=== PATIENT | female | born 1990 | race Caucasian/White ===

== ENCOUNTER 2017-01-02 09:12 | Inpatient (IN) | payer OTHER ==
[2017-01-02] MEDS ORDERED: FENTANYL 100 MCG/2 ML VIAL IV PRN ×3 (09:21→13:40)
[2017-01-02] MEDS ORDERED: LIDOCAINE HCL/PF 1% 30 ML VIAL SUBCUT PRN ×2 (09:21→13:40)
[2017-01-02] MEDS ORDERED: ONDANSETRON HCL 4 MG/2 ML VIAL IV PRN ×4 (09:21→15:36)
[2017-01-02] MEDS ORDERED: FENTANYL 100 MCG/2 ML VIAL IV ONE ×2 (09:21→13:40)
[2017-01-02] MEDS ORDERED: MISOPROSTOL 200 MCG TABLET PO PRN ×5 (09:21→15:36)
[2017-01-02] MEDS ORDERED: OXYTOCIN/NORMAL SALINE 30 UNIT/500 ML BAG IV SCH ×3 (09:21→15:36)
[2017-01-02] MEDS ORDERED: LACTATED RINGERS 1,000 ML IV SCH ×3 (09:21→14:00)
[2017-01-02] MEDS ORDERED: HOME MEDICATION LIST NEEDED 1 EA EACH MC ONE ×3 (09:21→15:36)
[2017-01-02 10:32] LABS: BASOPHILS 0.2 % (0.0-2.0); EOSINOPHILS 0.6 % (0.0-6.0); EOSINOPHILS# 0.1 X 10^3uL (0.0-0.4); HEMATOCRIT 37.6 % (36.0-48.0); HEMOGLOBIN 13.1 g/dL (12.0-16.0); LYMPHOCYTES 19.5 % (20.0-40.0); LYMPHOCYTES# 1.9 X 10^3uL (0.8-3.8); MEAN CELL VOLUME 92.8 fL (80.0-100.0); MEAN CORPUS. HGB CONCENTRATION 34.9 g/dL (32.0-36.0); MEAN CORPUSCULAR HEMOGLOBIN 32.4 pg (29.0-35.0); MONOCYTES 2.8 % (2.0-10.0); MONOCYTES# 0.3 X 10^3uL (0.2-1.0); NEUTROPHILS 76.9 % (54.0-75.0); NEUTROPHILS# 7.5 X 10^3uL (2.6-6.7); RED BLOOD COUNT 4.05 X 10^6uL (4.20-6.10); RED CELL DISTRIBUTION WIDTH 11.4 % (11.5-14.5); WHITE BLOOD COUNT 9.8 X 10^3uL (3.9-10.7)
[2017-01-02] MEDS ORDERED: TERBUTALINE SULFATE 1 MG/ML VIAL ONE (12:14)
[2017-01-02] MEDS ORDERED: ceFAZolin/DEXTROSE,ISO 2 GM/50 ML PIGGYBACK IV ONE ×2 (12:23→13:40)
--- NOTE | 2017-01-02 12:34 | PROGRESS NOTE:Antepartum ---
Assessment and Plan - Date of Encounter Date of Encounter: 01/02/17 (1) Transverse lie, antepartum Problem details: Back down transverse lie, SROM of clear fluid Status: Acute Assessment and plan: Discussed indication for including potential need to extend the uterine incision. Procedure risks and complications discussed, questions answered. No guarantees made. Consent obtained. Current Visit: Yes - Time Spent With Patient Total time spent with greater than 50% in coordination of care (as documented) at patient's floor/unit and/or counseling patient: HARD METALS HAND ENGRAVER: Antepartum PN Subj - Subjective Interval history: Presented to [facility] this morning after SROM of clear fluid at home. No contractions. complicated by hypothyroidism controlled on medication. Evaluated by RN /-2 and vertex palpated easily, grossly ruptured. Had Category I tracing and was allowed to ambulate. Recently complained that something about the baby's position seemed unusual and contractions felt very odd. I examined her cervix but was unable to palpate the head and suspected a shoulder presentation. Bedside ultrasound confirmed back down transverse lie with head maternal right. Amniotic fluid decreased but not absent. Discussed with patient and spouse a trial of version prior to and they concurred. Given 0.25mg Terbutaline and attempted ECV but unable to move fetus. Discussed and recommend section, they understand and agree. HARD METALS HAND ENGRAVER: Antepartum PN Obj Exam - Latest Vital Signs and I&O Latest Vital Signs/I&O: Vital Signs Temp 36.3 C L 01/02/17 11:24 Pulse 105 H 01/02/17 11:24 Resp 20 01/02/17 11:24 BP 118/78 01/02/17 11:24 Pulse Ox 94 01/02/17 11:24 Intake & Output 01/01/17 01/02/17 01/02/17 17:59 05:59 17:59 Weight 87.09 kg Other: Stool Characteristics Soft Voiding Method Toilet - Exam Heart Monitor: category I Lungs: Bilateral: normal Heart Rhythm: Present: regular Extremities: Absent: tenderness Abdomen: Present: soft Cervical Dilatation Degree: 4 Cervical Effacement Percentage: 50 Station: -4 Additional Comments: Shoulder presentation, clear amniotic fluid noted - Lab Labs: Laboratory Last Values WBC 9.8 X 10^3uL (3.9-10.7) 01/02/17 09:55 RBC 4.05 X 10^6uL (4.20-6.10) L 01/02/17 09:55 Hgb 13.1 g/dL (12.0-16.0) 01/02/17 09:55 Hct 37.6 % (36.0-48.0) 01/02/17 09:55 MCV 92.8 fL (80.0-100.0) 01/02/17 09:55 MCH 32.4 pg (29.0-35.0) 01/02/17 09:55 MCHC 34.9 g/dL (32.0-36.0) 01/02/17 09:55 RDW 11.4 % (11.5-14.5) L 01/02/17 09:55 Plt Count 201 X 10^3uL (130-440) 01/02/17 09:55 MPV 8.0 fL (7.4-10.4) 01/02/17 09:55 Neutrophils % 76.9 % (54.0-75.0) H 01/02/17 09:55 Lymphocytes % 19.5 % (20.0-40.0) L 01/02/17 09:55 Eosinophils % 0.6 % (0.0-6.0) 01/02/17 09:55 Basophils % 0.2 % (0.0-2.0) 01/02/17 09:55 Neutrophils # 7.5 X 10^3uL (2.6-6.7) H 01/02/17 09:55 Lymphocytes # 1.9 X 10^3uL (0.8-3.8) 01/02/17 09:55 Monocytes 2.8 % (2.0-10.0) 01/02/17 09:55 Monocytes # 0.3 X 10^3uL (0.2-1.0) 01/02/17 09:55 Eosinophils # 0.1 X 10^3uL (0.0-0.4) 01/02/17 09:55 Basophils # 0.0 X 10^3uL (0.0-0.1) 01/02/17 09:55 Antibody Screen Negative 01/02/17 09:55 (1) Transverse lie, antepartum Qualifiers: Fetus number: single or unspecified fetus Qualified Code(s): O32.2XX0 - Maternal care for transverse and oblique lie, not applicable or unspecified
[2017-01-02] MEDS ORDERED: TERBUTALINE SULFATE 1 MG/ML VIAL IV ONE ×2 (12:37→13:40)
[2017-01-02] MEDS ORDERED: LIDOCAINE HCL 1% 20 ML VIAL ONE (13:18)
[2017-01-02] MEDS ORDERED: HYDROmorphone HCL 1 MG/ML SYR IV PRN (13:40)
[2017-01-02] MEDS ORDERED: MORPHINE SULFATE 10 MG/ML SYR IV PRN (13:40)
[2017-01-02] MEDS ORDERED: DIPHENHYDRAMINE 25 MG CAPSULE PO PRN ×2 (13:40→15:36)
[2017-01-02] MEDS ORDERED: NALBUPHINE HCL 10 MG/ML AMP IV PRN ×2 (13:40→15:36)
[2017-01-02] MEDS ORDERED: NALOXONE HCL 0.4 MG/ML VIAL IV PRN ×6 (13:40→15:36)
[2017-01-02] MEDS ORDERED: DIPHENHYDRAMINE 50 MG/ML VIAL IV PRN ×2 (13:40→15:36)
[2017-01-02] MEDS ORDERED: FAMOTIDINE IN SALINE, ISO-OSM 20 MG/50 ML PIGGYBACK IV SCH (13:45)
--- NOTE | 2017-01-02 14:09 | OPERATIVE NOTE: C-Section ---
- Operative Report Date of procedure: 01/02/17 Pre-Op Diagnosis: Left shoulder presentation, back down transverse lie Post-op diagnosis: same Procedure: Primary LTC/S with "J" extension Anesthesia Type: Spinal Estimated Blood Loss: 800 Pathology: sent Sponge and instrument counts: correct Estimated Gestational Age (weeks): 37 (03/22) Delivery Presentation: transverse lie Heart Monitor: category I Amniotic Fluid: clear Cord Vessel Description: 3 Vessels Nuchal Cord # of Loops: 1 Cord clamped: Yes Cord blood obtained: Yes at 1 minute: 7 at 5 minutes: 9 Infant Gender: Female Weight: 2.952 kg Delivery Complications: Present: none Narrative: After discussion of the indications for section with the patient and her spouse, she was taken to the operative theatre where spinal anesthesia was induced. She was placed supine on the operating table in the left tilt position. Roman catheter was placed to down drain. Her abdomen was prepped and draped in the usual sterile fashion. After testing for adequate anesthesia a Maximo-Watson incision is made. This was carried bluntly to the fascia. The fascia was scored in the midline with the knife and extended in both lateral directions using Jacques scissors. The fascia was mobilized from the underlying rectus muscles, the rectus muscles are divided in the midline and the peritoneal cavity was entered into superiorly without difficulty. The peritoneal incision was extended in both cephalad and caudad directions. At this point an attempt was made to convert the fetus from the transverse lie but was unsuccessful. The Juan O ring retractor was placed. Transverse hysterotomy incision was made and carried in both lateral directions using the muscle-splitting technique. Amniotic fluid noted to be clear. Upon opening the uterus the right arm delivered and was placed back inside the uterus, attempts were made to disengage the infant but were unsuccessful so a "J" extension was made on the right side of the hysterotomy which all the to be delivered from the vertex presentation without difficulty. Oropharynx and nasopharynx are suctioned. Shoulders were delivered without difficulty. The is vigorous and crying at . The cord is doubly clamped and cut. was handed to pediatrics for assessment with findings as noted above. The placenta is expressed and the uterus was vigorously massaged and well contracted. Internal examination reveals no anomalies or retained products. The edges of the hysterotomy incision are grasped with Mccarty clamps. The hysterotomy incision is closed with 2 layers of 0 chromic suture; the first was a running locking stitch and the second an imbricating stitch. This resulted in excellent hemostasis. The pelvis was then copiously irrigated with warm saline. Retractor is removed and all counts are correct. The rectus muscles were plicated in the midline using a running 0 chromic suture. Subfascial tissues were hemostatic. The fascial incision was closed with running 0 PDS suture. Subcutaneous tissues were hemostatic and less than 2cm. The skin edges are reapproximated using 4-0 Monocryl subcuticular suture. Sterile dressings were applied and the patient is taken to the recovery room in good condition. Condition: stable Disposition: PACU
[2017-01-02] MEDS ORDERED: SIMETHICONE CHEW 80 MG TABLET PO PRN (15:36)
[2017-01-02] MEDS ORDERED: MAGNESIUM HYDROXIDE 30 ML UDC PO PRN (15:36)
[2017-01-02] MEDS ORDERED: LANOLIN CREAM 1 APP/7 GM TUBE TOPICAL PRN (15:36)
[2017-01-02] MEDS: DEXTROSE 5% LACTATED RINGERS 1,000 ML IV SCH (16:21)
--- NOTE | 2017-01-02 19:25 | PROGRESS NOTE:C-section ---
Assessment and Plan - Date of Encounter Date of Encounter: 01/02/17 (1) care following delivery Problem details: S/P LTC/S with "J" extension Status: Acute Assessment and plan: Doing well, discussed surgery and answered questions. Recommend against TOLAC due to "J" extension required for delivery. Advance diet now. Current Visit: Yes - Time Spent With Patient Total time spent with greater than 50% in coordination of care (as documented) at patient's floor/unit and/or counseling patient: DRIVER GUARD: C-Sec PN Subjective Interval History: States she has been doing well since surgery, has feeling back. Taking po. Post-op Day: 0 Patient reports: pain well controlled, no nausea [place]: doing well, nursing well DRIVER GUARD: C-Sec PN Obj Exam - Latest Vital Signs and I&O Latest Vital Signs/I&O: Vital Signs Temp 36.3 C L 01/02/17 15:40 Pulse 91 H 01/02/17 18:30 Resp 16 01/02/17 18:30 BP 110/74 01/02/17 18:30 Pulse Ox 98 01/02/17 14:45 Intake & Output 01/02/17 01/02/17 01/03/17 05:59 17:59 05:59 Intake Total 1800 600 Output Total 400 450 Balance 1400 150 Weight 87.09 kg Intake: IV 1700 600 Right Forearm 1700 600 Oral 100 Output: Urine 400 450 Other: Urine Appearance Clear Clear Urine Color Yellow Yellow Uretheral (Roman) Pale Yellow Stool Characteristics Soft Voiding Method Indwelling Catheter Indwelling Catheter - Exam Lungs: Bilateral: normal Heart Rhythm: Present: regular Extremities: Absent: tenderness Abdomen: Present: soft Bowel sounds: present Incision: Present: dressed Uterus: Present: firm, non tender - Lab Labs: Laboratory Last Values WBC 9.8 X 10^3uL (3.9-10.7) 01/02/17 09:55 RBC 4.05 X 10^6uL (4.20-6.10) L 01/02/17 09:55 Hgb 13.1 g/dL (12.0-16.0) 01/02/17 09:55 Hct 37.6 % (36.0-48.0) 01/02/17 09:55 MCV 92.8 fL (80.0-100.0) 01/02/17 09:55 MCH 32.4 pg (29.0-35.0) 01/02/17 09:55 MCHC 34.9 g/dL (32.0-36.0) 01/02/17 09:55 RDW 11.4 % (11.5-14.5) L 01/02/17 09:55 Plt Count 201 X 10^3uL (130-440) 01/02/17 09:55 MPV 8.0 fL (7.4-10.4) 01/02/17 09:55 Neutrophils % 76.9 % (54.0-75.0) H 01/02/17 09:55 Lymphocytes % 19.5 % (20.0-40.0) L 01/02/17 09:55 Eosinophils % 0.6 % (0.0-6.0) 01/02/17 09:55 Basophils % 0.2 % (0.0-2.0) 01/02/17 09:55 Neutrophils # 7.5 X 10^3uL (2.6-6.7) H 01/02/17 09:55 Lymphocytes # 1.9 X 10^3uL (0.8-3.8) 01/02/17 09:55 Monocytes 2.8 % (2.0-10.0) 01/02/17 09:55 Monocytes # 0.3 X 10^3uL (0.2-1.0) 01/02/17 09:55 Eosinophils # 0.1 X 10^3uL (0.0-0.4) 01/02/17 09:55 Basophils # 0.0 X 10^3uL (0.0-0.1) 01/02/17 09:55 Antibody Screen Negative 01/02/17 09:55
[2017-01-02] MEDS: ACETAMINOPHEN 1,000 MG/100 ML VIAL IV SCH (19:51)
[2017-01-02] MEDS: DOCUSATE SODIUM 100 MG CAPSULE PO SCH (21:11)
[2017-01-03] MEDS: DEXTROSE 5% LACTATED RINGERS 1,000 ML IV SCH (00:21)
[2017-01-03] MEDS: ACETAMINOPHEN 1,000 MG/100 ML VIAL IV SCH (02:10)
[2017-01-03 05:43] LABS: BASOPHILS 0.4 % (0.0-2.0); EOSINOPHILS 0.5 % (0.0-6.0); HEMATOCRIT 28.8 % (36.0-48.0); HEMOGLOBIN 9.8 g/dL (12.0-16.0); LYMPHOCYTES 20.5 % (20.0-40.0); LYMPHOCYTES# 1.8 X 10^3uL (0.8-3.8); MEAN CELL VOLUME 93.6 fL (80.0-100.0); MEAN CORPUS. HGB CONCENTRATION 34.1 g/dL (32.0-36.0); MEAN CORPUSCULAR HEMOGLOBIN 31.9 pg (29.0-35.0); MEAN PLATELET VOLUME 6.8 fL (7.4-10.4); MONOCYTES 6.2 % (2.0-10.0); MONOCYTES# 0.5 X 10^3uL (0.2-1.0); NEUTROPHILS 72.4 % (54.0-75.0); NEUTROPHILS# 6.4 X 10^3uL (2.6-6.7); RED BLOOD COUNT 3.08 X 10^6uL (4.20-6.10); RED CELL DISTRIBUTION WIDTH 11.7 % (11.5-14.5); WHITE BLOOD COUNT 8.7 X 10^3uL (3.9-10.7)
[2017-01-03] MEDS ORDERED: LEVOTHYROXINE 75 MCG TABLET PO SCH (06:30)
[2017-01-03] MEDS ORDERED: LEVOTHYROXINE 50 MCG TABLET PO SCH (06:30)
--- NOTE | 2017-01-03 08:41 | PROGRESS NOTE:C-section ---
Assessment and Plan - Date of Encounter Date of Encounter: 01/03/17 (1) care following delivery Problem details: S/P LTC/S with "J" extension Status: Acute Assessment and plan: No evidence of hypovolemia despite low H&H. Will ambulate. Current Visit: Yes - Time Spent With Patient Total time spent with greater than 50% in coordination of care (as documented) at patient's floor/unit and/or counseling patient: STONEMASON HELPER: C-Sec PN Subjective Interval History: Denies issues overnight. Feeling well this morning. Patient reports: pain well controlled, no nausea, no flatus [place]: doing well, nursing well STONEMASON HELPER: C-Sec PN Obj Exam - Latest Vital Signs and I&O Latest Vital Signs/I&O: Vital Signs Temp 36.2 C L 01/03/17 04:30 Pulse 83 01/03/17 04:30 Resp 16 01/03/17 06:30 BP 96/45 01/03/17 04:30 Pulse Ox 94 01/03/17 04:30 Intake & Output 01/02/17 01/03/17 01/03/17 17:59 05:59 17:59 Intake Total 1800 2850 200 Output Total 400 2150 200 Balance 1400 700 0 Weight 87.09 kg Intake: IV 1700 1650 200 Right Forearm 1700 1650 200 Oral 100 1200 Output: Urine 400 2150 200 Other: Urine Appearance Clear Clear Clear Urine Color Yellow Yellow Yellow Uretheral (Roman) Pale Yellow Stool Characteristics Soft Voiding Method Indwelling Catheter Indwelling Catheter Indwelling Catheter - Exam Lungs: Bilateral: normal Heart Rhythm: Present: regular Extremities: Absent: tenderness Abdomen: Present: soft Bowel sounds: present Incision: Present: dressed Uterus: Present: firm, non tender - Lab Labs: Laboratory Last Values WBC 8.7 X 10^3uL (3.9-10.7) 01/03/17 05:00 RBC 3.08 X 10^6uL (4.20-6.10) L 01/03/17 05:00 Hgb 9.8 g/dL (12.0-16.0) L 01/03/17 05:00 Hct 28.8 % (36.0-48.0) L 01/03/17 05:00 MCV 93.6 fL (80.0-100.0) 01/03/17 05:00 MCH 31.9 pg (29.0-35.0) 01/03/17 05:00 MCHC 34.1 g/dL (32.0-36.0) 01/03/17 05:00 RDW 11.7 % (11.5-14.5) 01/03/17 05:00 Plt Count 155 X 10^3uL (130-440) 01/03/17 05:00 MPV 6.8 fL (7.4-10.4) L 01/03/17 05:00 Neutrophils % 72.4 % (54.0-75.0) 01/03/17 05:00 Lymphocytes % 20.5 % (20.0-40.0) 01/03/17 05:00 Eosinophils % 0.5 % (0.0-6.0) 01/03/17 05:00 Basophils % 0.4 % (0.0-2.0) 01/03/17 05:00 Neutrophils # 6.4 X 10^3uL (2.6-6.7) 01/03/17 05:00 Lymphocytes # 1.8 X 10^3uL (0.8-3.8) 01/03/17 05:00 Monocytes 6.2 % (2.0-10.0) 01/03/17 05:00 Monocytes # 0.5 X 10^3uL (0.2-1.0) 01/03/17 05:00 Eosinophils # 0.0 X 10^3uL (0.0-0.4) 01/03/17 05:00 Basophils # 0.0 X 10^3uL (0.0-0.1) 01/03/17 05:00 Antibody Screen Negative 01/02/17 09:55
[2017-01-03] MEDS: DOCUSATE SODIUM 100 MG CAPSULE PO SCH ×2 (09:51→21:21)
[2017-01-03] MEDS: IBUPROFEN 600 MG TABLET PO PRN ×2 (09:52→16:40)
[2017-01-04] MEDS: IBUPROFEN 600 MG TABLET PO PRN ×2 (00:06→08:02)
[2017-01-04 05:24] VITALS: RESP 16
[2017-01-04] MEDS: DOCUSATE SODIUM 100 MG CAPSULE PO SCH (08:02)
[2017-01-04 09:31] VITALS: BP 108/59; PULSE 78; TEMP 97.5; O2SAT 99
--- NOTE | 2017-01-04 10:35 | DC SUMMARY: Obstetrical/GYN ---
Discharge Summary: Surg/OB Provider: Date of Admission: 01/02/17 Admitting Provider: JON PENA MD Attending Provider: JON PENA MD Discharging Provider: JON PENA MD Primary Care Provider: Discharge Date: 01/04/17 - Diagnosis (1) care following delivery Status: Acute Hospital Course: Ms. GUADALUPE is a 26 year old female who presented to [facility] [place] [facility] in the morning after SROM of clear fluid at home. No contractions. complicated by hypothyroidism controlled on medication. Evaluated by RN /-2 and vertex palpated easily, grossly ruptured. Had Category I tracing and was allowed to ambulate. Complained that something about the baby's position seemed unusual and contractions felt very odd. I examined her cervix but was unable to palpate the head and suspected a shoulder presentation. Bedside ultrasound confirmed back down transverse lie with head maternal right. Amniotic fluid decreased but not absent. So trial of ECV was attempted without success. She then underwent a delivery and delivered a healthy child though "J" extension of the hysterotomy was required. Postoperatively she did well with good return of bowel and bladder function. On the second day she had met all criteria and was discharged to home in good condition. Discharge - Patient/Caregiver Discharge Instructions Activity Level: Abdominal and pelvic rest Diet: Regular Additional Instructions: Jon Pena M.D. POST SECTION INSTRUCTIONS 1. Please make an appointment to see me for an incision check one week after delivery as well as a final check up to six weeks following delivery. Please call the clinic to make these appointments. Do not hesitate to call me, or my nurse, with any questions or problems regarding gynecological care or breast feeding. 2. It would be best for you to restrict your activities to baby care for the first week. As you feel up to it, you may increase your activity. Use your own judgment, listen to your body, and take frequent short rests as you become tired. 3. You will receive a prescription for pain pills upon hospital discharge. I recommend you alternate these with ibuprofen. If needed, take as directed. Do not drive a car or operate machinery as long as you are taking narcotic pain medication. 4. You may climb stairs but try to make the trip worthwhile. Do not walk up and down excessively. Do not lift anything heavier than your baby for at least four weeks following delivery. 5. If you are breast feeding, wear a well supporting bra day and night (a maternity or sports bra). Use the lanolin or aracelis cream provided to you after each feeding. It does not need to be washed off before you feed your baby. Do not use soap on your nipples; wash them with clear water. Wash your hands before you handle your baby or your breasts. Do not allow your nipples to become caked with milk or to be constantly wet with milk that leaks between feedings. 6. To help prevent complications with : a)Ensure good position and latch b)Ensure feeding on demand c)Empty breasts fully d)Use hand expression to help relieve fullness e)Expose breast engorgement to warm water by shower or basin f)Call if unrelieved or if you have questions Rika Valle : Venita Parker, ___[phone] Tyler Fernandez, ___ 7. If you are not breast feeding, wear a well supporting bra day and night for at least two full weeks. Should your breasts become full, apply ice packs and avoid stimulation to your breasts. This full feeling may last 2-3 days and then gradually subside. 8. Start your Kegel exercises at home. Restrict your normal exercise program until after your six-week check up. 9. Take only showers for the first two weeks. Baths may be taken after two weeks if desired and the bleeding is minimal. 10. Vaginal discharge is usually bright red for two to four days following delivery, and then becomes pinkish or dark red in four to ten days. The vaginal flow will gradually subside. You may have intermittent episodes of increased bleeding and may pass a few clots. The bleeding should not be heavier than a normal period for more than a few days. Use only mini or maxi pads. Vaginal discharge may last four to eight weeks. Call me if bleeding seems excessive. No tampons, douching or intercourse until your bleeding stops. 11. Bleeding may be heavier after activity. If your bleeding does not slow down after resting, please notify me. 12. Eat a well-balanced diet. You should drink 6-8 glasses of fluid per day and eat the same kind of diet you were on during your . Fresh fruits, green leafy vegetables, bran cereals and whole wheat breads should be eaten to prevent constipation. If necessary, stool softeners may be obtained at the pharmacy without a prescription. Use as directed. Milk of Magnesia may be used for constipation. 13. Continue taking your vitamins and iron for one month. If you are breast feeding, continue taking your vitamins as long as you breast feed. If you are breast feeding be very cautious about taking medications not prescribed by me. Always inform your physician that you are breast feeding before he or she prescribes any medication for you. 14. Report any vomiting or fever above 100.5 degrees. It is not necessary to take your temperature daily, but if you feel like you have a fever, take your temperature and call me if necessary. 15. Rob will be removed in the office, all other suture material dissolves. The skin may separate a small amount. Clean the area with warm water and make an appointment to be seen. Report any greenish drainage to me, clear drainage is quite normal. If the drainage is excessive, make an appointment to see me. 16. I can be reached through the hospital charge nurse ([phone]) or the Hospital Press Leader ([phone]). If no one answers, please leave your name and number and expect a return phone call in 30 minutes. Jon Pena M.D. Follow up: JON PENA MD [ACTIVE (Staff Physician)] - 7 Days Overall discharge status: stable Home Medications: Ibuprofen [Motrin] 2 - 3 tab PO Q4H PRN #30 tablet PRN Reason: pain oxyCODONE HCL/ACETAMINOPHEN [Percocet 5-325 mg Tablet] 1 each PO Q4H PRN #30 tablet PRN Reason: Pain, Severe Disposition: HOME, SELF-CARE Obstetrical/SKID MAN Discharge Exam - Latest Vital Signs and I&O Latest Vital Signs/I&O: Vital Signs Temp 36.4 C L 01/04/17 09:30 Pulse 78 01/04/17 09:30 Resp 16 01/04/17 09:30 BP 108/59 01/04/17 09:30 Pulse Ox 99 01/04/17 09:30 Intake & Output 01/03/17 01/04/17 01/04/17 17:59 05:59 17:59 Intake Total 400 Output Total 1600 Balance -1200 Intake: IV 400 Right Forearm 400 Output: Urine 1600 Other: Urine Appearance Sediment Urine Color [place] Voiding Method Toilet Toilet Toilet - Exam Lungs: Bilateral: normal Heart Rhythm: Present: regular Extremities: Absent: tenderness Abdomen: Present: soft Bowel sounds: present Incision: Present: well approximated, sutures intact. Absent: erythematous Uterus: Present: firm, non tender Discharge Summary Data - Medication History Medication History: Home Medications Levothyroxine [Synthroid*] 150 mcg PO DAILY 04/05/14 Vit/Fe Fumarate/FA [ Rx*] 1 tab PO DAILY 04/05/14 Inpatient Medications 01/02/17 15:36 Lanolin Cream [Lansinoh] 1 gwen TOPICAL PRN PRN Magnesium Hydroxide [Milk of Magnesia] 30 ml PO PRN PRN Simethicone Chew [Mylicon] 80 mg PO Q6H PRN 01/02/17 21:00 Docusate Sodium [Colace] 100 mg PO BID 01/03/17 06:30 Levothyroxine [Synthroid] 150 mcg PO DAILY@0630 01/03/17 08:39 Ibuprofen [Motrin] 600 mg PO Q6H PRN Procedures and tests throughout hospitalization: Completed Lab Orders 01/02/17 09:55 ANTIBODY SCREEN [HEM] Stat CBC AUTO DIF, MDIF/RMOR IF IND [HEM] Stat 01/03/17 05:00 CBC AUTO DIF, MDIF/RMOR IF IND [HEM] AMDRAW Pending Orders 12/26/16 20:46 Resuscitation Status Routine 01/02/17 09:21 Admit: Inpatient Routine VTE Prophylaxis Scoring/ Ordering Routine Epidural on demand/Notify NUCLEAR OFFICER PER PROTOCOL May use Jacuzzi PRN Straight Cath PRN 01/02/17 12:23 Anesthesia Type . Pre-op by anesthesia . 01/02/17 13:40 Kunal hugger if temp <34 C PRN Did pt have a spinal/epidural? . Vital Signs Q4H Warm blankets if temp<36 C PRN 01/02/17 15:36 Incentive Spirometry Q4H K Pad PRN Post Assessment PER PROTOCOL Lanolin Cream [Lansinoh] 1 gwen TOPICAL PRN PRN Magnesium Hydroxide [Milk of Magnesia] 30 ml PO PRN PRN Simethicone Chew [Mylicon] 80 mg PO Q6H PRN 01/02/17 21:00 Docusate Sodium [Colace] 100 mg PO BID 01/02/17 Dinner Regular [DIET] 01/03/17 06:30 Levothyroxine [Synthroid] 150 mcg PO DAILY@0630 01/03/17 08:39 Ibuprofen [Motrin] 600 mg PO Q6H PRN 01/03/17 09:00 May shower POD #1 01/03/17 Dinner Special Meal (NLC)
== END 2017-01-04 11:00 | disposition home or self-care (01) | DRG 766 ==
LOC: NLCPRO 09:12 → NLC 09:14
PROVIDERS: ADMIT Obstetrics & Gynecology; ATTEND Obstetrics & Gynecology
PROC: 10D00Z1 Extraction of Products of Conception, Low, Open Approach (ICD-10-PCS; principal; 2017-01-02)
DX: O64.8XX0 Obstructed labor due to other malposition and malpresentation, not applicable or unspecified (principal); Z3A.37 37 weeks gestation of pregnancy; Z37.0 Single live birth
CPT/HCPCS: 36415; 85025; 86850; C1781; J1170; J3105; J7120